=== PATIENT | female | born 1980 | race American Indian/Alaskan Native ===

== ENCOUNTER 2018-12-23 17:34 | Outpatient (CLI) | payer MEDICAID ==
[2018-12-23] MEDS ORDERED: LACTATED RINGERS 500 ML IV ONE (18:35)
[2018-12-23 18:58] VITALS: BP 116/72
[2018-12-23 19:02] LABS: Amphetamine Screen,Urine PRESUMPTIVE NEGATIVE; Benzodiazepines Screen,Urine PRESUMPTIVE NEGATIVE; Cannabinoid Screen,Urine PRESUMPTIVE NEGATIVE; Cocaine Screen,Urine PRESUMPTIVE NEGATIVE; Methadone Screen,Urine PRESUMPTIVE NEGATIVE; Opiate Screen,Urine PRESUMPTIVE NEGATIVE
[2018-12-23 19:03] LABS: Bacteria,Urine 4+ /HPF (Negative); Bilirubin,Urine NEG (Negative); Blood,Urine NEG (Negative); Color,Urine Yellow (Yellow); Mucus,Urine 3+ /HPF; Protein,Urine <15 mg/dL mg/dL (Negative)
--- NOTE | 2018-12-23 21:30 | Ultrasound Report ---
PROCEDURE: US OB BPP WO NON-STRESS TECHNIQUE: Ultrasound OB BPP HISTORY: non reactive NST COMPARISONS: None FINDINGS: Biophysical profile scoring [2]movement [2]tone [2]breathing [2]fluid 8/8 overall score Presentation: Cephalic Activity: Monitored Placental location: Anterior towards the fundus Cardiac motion: 145 BPM using M-mode doppler Amniotic Fluid Volume: Adequate IMPRESSION: Single viable with 8/8 biophysical profile score This document is electronically signed by Yolanda Coronel MD., December 23 2018 09:28:52 PM ET
== END 2018-12-23 21:03 | disposition home or self-care (01) ==
LOC: TRG 17:34
PROVIDERS: ATTEND Obstetrics & Gynecology
DX: O62.9 Abnormality of forces of labor, unspecified (principal); O48.0 Post-term pregnancy; O09.523 Supervision of elderly multigravida, third trimester; O26.893 Other specified pregnancy related conditions, third trimester; Z3A.40 40 weeks gestation of pregnancy
CPT/HCPCS: 76819; 80307; 81001; J7120